=== PATIENT | male | born 2000 | race Two or more races ===

== ENCOUNTER 2025-05-09 18:51 | Emergency (ER) | payer OTHER ==
[~2025-05-09] VITALS: Ht 177.8 cm; Wt 93.0 kg
[2025-05-09] MEDS ORDERED: XANAX0.25 MG PO (20:15)
[2025-05-09] MEDS ORDERED: PROPAFENONE HC225 M1 PO (20:16)
[2025-05-09] MEDS ORDERED: BUPROPION XL450 MG PO (20:17)
[2025-05-09] MEDS ORDERED: TRAZODONE HCL100 MG PO (20:17)
[2025-05-09] MEDS ORDERED: DESCOVY 200-251 EACH PO (20:18)
[2025-05-09] MEDS ORDERED: ESCITALOPRA5 MG/5 ML PO (20:18)
[2025-05-09] MEDS ORDERED: KETOROLAC TROMETHAMINE 30 MG VIAL IM ONE (21:00)
[2025-05-09] MEDS ORDERED: CEFTRIAXONE SODIUM 1,000 MG VIAL IM ONE (21:00)
[2025-05-09] MEDS ORDERED: AMOX-CLAV 875-1 EACH PO (21:53)
[2025-05-09] MEDS ORDERED: IBUPROFEN600 MG PO (21:53)
[2025-05-09] MEDS ORDERED: LIDOCAINE HCL 1% 10ML VIAL ONE (22:12)
[2025-05-09] MEDS ORDERED: KETOROLAC TROMETHAMINE 30 MG VIAL ONE (22:12)
== END 2025-05-10 02:27 | disposition home or self-care (01) ==
LOC: ER 18:52
DX: S91.142A Puncture wound with foreign body of left great toe without damage to nail, initial encounter (principal); W45.8XXA Other foreign body or object entering through skin, initial encounter; Y93.89 Activity, other specified; Y92.832 Beach as the place of occurrence of the external cause